=== PATIENT | male | born 1990 | race Caucasian/White ===

== ENCOUNTER 2022-10-26 08:06 | Emergency (ER) | payer SELFPAY ==
[2022-10-26] MEDS ORDERED: fentaNYL 50 MCG/ML SDV IVPUSH ONE (08:24)
[2022-10-26] MEDS ORDERED: LORazepam 2 MG/ML SDV IVPUSH ONE (08:24)
[2022-10-26] MEDS: Sodium Chloride 0.9% 10 ML Syringe FLUSH PRN ×3 (08:38→10:04)
[2022-10-26] MEDS ORDERED: Ondansetron 4 MG/2 ML SDV IVPUSH PRN (08:51)
[2022-10-26] MEDS ORDERED: HYDROmorphone 0.5 MG/0.5 ML Syringe IVPUSH PRN (09:54)
== END 2022-10-26 11:05 ==
LOC: LL.ED 08:06
DX: S01.112A Laceration without foreign body of left eyelid and periocular area, initial encounter (principal); G40.909 Epilepsy, unspecified, not intractable, without status epilepticus; Z79.899 Other long term (current) drug therapy; W19.XXXA Unspecified fall, initial encounter
CPT/HCPCS: 36415; 70450; 80053; 80177; 85025; 96374; 96375; 99284; 99284-25; J1170; J2060; J2405; J3010; J3490

== ENCOUNTER 2023-06-29 22:38 | Emergency (ER) | payer SELFPAY ==
[2023-06-29] MEDS ORDERED: Sodium Chloride 0.9% 10 ML Syringe FLUSH PRN (22:39)
[2023-06-29] MEDS ORDERED: Ondansetron 4 MG/2 ML SDV IVPUSH ONE (22:39)
[2023-06-29] MEDS ORDERED: Sodium Chloride 0.9% 1,000 ML IV ONE (22:39)
[2023-06-29] MEDS ORDERED: levETIRAcetam in NaCl (iso-os) 1,000 MG in Premix Bag 1 BAG IV ONE ×2 (22:40)
[2023-06-29] MEDS ORDERED: Aluminum Hydroxide/Magnesium Hydroxide/Simethicone Susp 30 ML Cup PO ONE (23:09)
[2023-06-29] MEDS ORDERED: Pantoprazole 40 MG Vial IVPUSH ONE (23:09)
[2023-06-29 23:14] LABS: BASOPHILS ABSOLUTE AUTO 0.13 K/uL (0.00-0.20); BASOPHILS PERCENT AUTO 1.2 % (0.0-2.0); EOSINOPHILS ABSOLUTE AUTO 0.03 K/uL (0.00-0.50); EOSINOPHILS PERCENT AUTO 0.3 % (0.0-5.0); HEMOGLOBIN 14.8 g/dL (13.1-16.8); LYMPHOCYTES ABSOLUTE AUTO 1.09 K/uL (0.50-3.50); LYMPHOCYTES PERCENT AUTO 10.2 % (10.0-50.0); MEAN CORPUSCULAR HEMOGLOBIN 35.6 pg (28.2-33.3); MEAN CORPUSCULAR HGB CONC 36.1 g/dL (31.7-36.0); MEAN CORPUSCULAR VOLUME 98.6 fL (84.0-98.0); MONOCYTES ABSOLUTE AUTO 0.52 K/uL (0.00-1.00); MONOCYTES PERCENT AUTO 4.9 % (2.0-14.0); NEUTROPHILS ABSOLUTE AUTO 8.88 K/uL (1.40-7.00); NEUTROPHILS PERCENT AUTO 83.4 % (45.0-80.0); PLATELET COUNT,PLT 327 K/uL (150-350); RED BLOOD CELL COUNT 4.16 M/uL (4.33-5.41); WHITE BLOOD CELL COUNT,WBC 10.7 K/uL (4.0-10.2)
[2023-06-29 23:29] LABS: ALANINE AMINOTRANSFERASE,ALT 55 U/L (12-78); ALBUMIN 3.5 g/dL (3.4-5.0); ALKALINE PHOSPHATASE 91 IU/L (46-116); ASPARTATE AMNIOTRANSFERASE,AST 55 U/L (15-37); BILIRUBIN TOTAL 0.7 mg/dL (0.2-1.0); BLOOD UREA NITROGEN,BUN 7 mg/dL (7-18); CALCIUM 8.6 mg/dL (8.5-10.1); CARBON DIOXIDE,CO2 14.7 mmol/L (21.0-32.0); CHLORIDE,CL 98 mmol/L (98-107); CREATININE 1.61 mg/dL (0.51-1.17); GLUCOSE RANDOM 131 mg/dL (70-99); MAGNESIUM 2.2 mg/dL (1.8-2.4); POTASSIUM,K 4.6 mmol/L (3.5-5.1); PROTEIN TOTAL,TP 6.8 g/dL (6.4-8.2); SODIUM,NA 137 mmol/L (136-145)
[2023-06-29 23:35] LABS: ANION GAP 28.9 meq/L (7-15); ESTIMATED GFR 59 mL/min (>=60)
[2023-06-30 00:22] LABS: CORONAVIRUS COVID-19 NAA NEGATIVE (NEGATIVE); INFLUENZA A NAA NEGATIVE (NEGATIVE); INFLUENZA B NAA NEGATIVE (NEGATIVE); RESPIRATORY SYNCYTIAL VIR NAA NEGATIVE (NEGATIVE)
[2023-06-30] MEDS ORDERED: levETIRAcetam 250 MG Tab PO SCH (00:45)
== END 2023-06-30 00:45 | disposition home or self-care (01) ==
LOC: LL.ED 22:38
DX: G40.909 Epilepsy, unspecified, not intractable, without status epilepticus (principal); I10 Essential (primary) hypertension; Z90.49 Acquired absence of other specified parts of digestive tract; Z79.899 Other long term (current) drug therapy
CPT/HCPCS: 0241U; 36415; 74022; 80053; 83605; 83735; 85025; 96361; 96374; 96375; 99284; 99284-25; A9270-GY; C9113; J1953; J2405; J3360; J7030